=== PATIENT | female | born 1925 | race Caucasian/White ===

== ENCOUNTER 2017-04-15 16:04 | Emergency (ER) | payer OTHER ==
[2017-04-15 16:15] VITALS: BP 163/67; BMI 20.9
--- NOTE | 2017-04-15 16:23 | DR.GENAD ---
HPI - PCP Primary Care Physician: [email or web address] - HPI Comment HPI Comment: Patient c/o falling in her restroom today.She c/o L sided rib cage soreness, L forehead pain and L arm pain with laceration. She is a sharp 89 y/o with a good memory. - Complaint/Symptoms Chief Complaint Doctors Comments: " I fell in my restroom." Chief Complaint:: patient fell at home and has a 6 cm skin tear to her left upper arm. - Nurses notes reviewed Nurses Notes Review: Yes - Source History Provided: Patient - Mode of Arrival Mode of Arrival: EMS - Timing Onset of Chief Complaint: 04/15/17 Came on: Suddenly PMH - PMH Past Medical History: Yes Past Medical History: Dyslipidemia, Hypertension, Hypothyroidism Past Surgical History: Yes Surgical History: Hysterectomy, Joint Replacement, Ortho Surgery - Family History History of Family Medical Conditions: Yes Family Medical History: Cancer, [place], Sudden Cardiac , Hypertension - Social History Does patient currently use any type of tobacco product: No Have you used tobacco products in the last 12 months: No Type of Tobacco Use: None Does any household member use tobacco: No Alcohol Use: None Do you use any recreational Drugs:: No Lives With: Family Lives Where: Home - infectious screening In the last 2 months have you had wt loss of >10#?: NO Have you had fever, night sweats or hemotysis?: No Have you traveled outside the country in the last 6 months?: No Isolation: Standard ROS - Review of Systems Constitutional: No Symptoms Reported Respiratoy: No Symptoms Reported Cardiovascular: Other (l sided rib cage soreness.) Gastrointestinal/Abdominal: No Symptoms Reported Genitourinary: No Symptoms Reported Neurological: No Symptoms Reported, Weakness, Problems Walking Musculoskeletal: Left, Arm, Elbow, Forearm Integumentary: Other (laceration) Hematologic/Lymphatic: No Symptoms Reported Endocrine: No Symptoms Reported Psychiatric: No Symptoms Reported All Other Systems: Reviewed and Negative PE - Vital Signs Vitals: Temperature 98.7 F Pulse Rate 84 Respiratory Rate 16 Blood Pressure [] 122/65 Blood Pressure [] 108/61 Blood Pressure 163/67 O2 Sat by Pulse Oximetry 100 - General Limitations: No Limitations General Appearance: Alert, In No Apparent Distress - Head Head Exam: Other (left sided forehead bruise with mild TTP) - ENT External Ear Exam: Normal External Inspection Mouth Exam: Normal Inspection Throat Exam: Normal Inspection - Neck Neck Exam: Normal Inspection, Full ROM, Trachea Midline - Cardiovascular Cardiovascular Exam: Regular Rate, Normal Rhythm, Normal Heart Sounds - Abdominal Exam Abdominal Exam: Normal Inspection, Normal Bowel Sounds, Soft - Extremities Extremities Exam: Other (7 cm l arm avulsive laceration superficial . No evidence of foreign body noted.) - Neurologic Neurological Exam: Alert, Oriented X3, CN II-XII Intact - Psychiatric Psychiatric Exam: Normal Affect - Skin Skin Exam: Warm, Dry, Intact, Normal Color, Other (laceration) MDM - Differential Diagnosis Differential Diagnosis: falol. head injury, rib fracture. ROR - Labs Reviewed Result Diagrams: 04/15/17 16:44 04/15/17 16:44 Laboratory: WBC 8.1 X10^3/uL (3.6-10.0) 04/15/17 16:44 RBC 4.29 X10^6/uL (3.5-5.4) 04/15/17 16:44 Hgb 14.2 g/dL (12.0-16.0) 04/15/17 16:44 Hct 40.9 % (36.0-47.0) 04/15/17 16:44 MCV 95.3 fL (80.0-100.0) 04/15/17 16:44 MCH 33.0 pg (27.0-34.0) 04/15/17 16:44 MCHC 34.6 g/dL (33.0-35.0) 04/15/17 16:44 RDW 14.6 % (11.6-16.5) 04/15/17 16:44 Plt Count 197 X10^3/uL (150.0-450.0) 04/15/17 16:44 MPV 8.7 fL (7.4-11.0) 04/15/17 16:44 Neut % 57.3 % (42.0-75.0) 04/15/17 16:44 Lymph % 29.5 % (21.0-51.0) 04/15/17 16:44 [place] % 9.3 % (0.0-13.0) 04/15/17 16:44 Eos % 2.4 % (0.9-2.9) 04/15/17 16:44 Baso % 1.5 % (0.2-1.0) H 04/15/17 16:44 Neut # 4.7 x10^3/uL (2.2-4.8) 04/15/17 16:44 Lymph # 2.4 X10^3/uL (1.3-2.9) 04/15/17 16:44 [place] # 0.8 x10^3/uL (0.3-0.8) 04/15/17 16:44 Eos # 0.2 x10^3/uL (0.0-0.2) 04/15/17 16:44 Baso # 0.1 X10^3/uL (0.0-0.1) 04/15/17 16:44 Absolute Nucleated RBC 0.0 /100WBC 04/15/17 16:44 Sodium 142 mmol/L (136-145) 04/15/17 16:44 Corrected Sodium 143 mmol/L (136-145) 04/15/17 16:44 Potassium 3.5 mmol/L (3.5-5.1) 04/15/17 16:44 Chloride 104 mmol/L (98-107) 04/15/17 16:44 Carbon Dioxide 29.5 mmol/L (21-32) 04/15/17 16:44 BUN 28 mg/dL (7-18) H 04/15/17 16:44 Creatinine 1.46 mg/dL (0.55-1.02) H 04/15/17 16:44 Est GFR (MDRD) Af Amer 43 (>60) L 04/15/17 16:44 Est GFR (MDRD) Non-Af 36 (>60) L 04/15/17 16:44 Glucose 133 mg/dL (65-99) H 04/15/17 16:44 Calcium 8.7 mg/dL (8.5-10.1) 04/15/17 16:44 Corrected Calcium TNP 04/15/17 16:44 Total Bilirubin 0.60 mg/dL (0.2-1.0) 04/15/17 16:44 AST 21 Units/L (15-37) 04/15/17 16:44 ALT 18 Units/L (12-78) 04/15/17 16:44 Alkaline Phosphatase 89 Units/L (46-116) 04/15/17 16:44 Total Protein 7.9 g/dL (6.4-8.2) 04/15/17 16:44 Albumin 3.6 g/dL (3.4-5.0) 04/15/17 16:44 Globulin 4.3 g/dL (2.5-4.5) 04/15/17 16:44 Albumin/Globulin Ratio 0.8 Ratio (1.1-2.1) L 04/15/17 16:44 Specimen Type Clean catch urine 04/15/17 17:17 Urine Color Yellow (YELLOW) 04/15/17 17:17 Urine Appearance Hazy (CLEAR) 04/15/17 17:17 Urine pH 5.0 (5.0 - 8.0) 04/15/17 17:17 Ur Specific [place] 1.015 (1.000-1.030) 04/15/17 17:17 Urine Protein 2+ (NEGATIVE) 04/15/17 17:17 Urine Glucose (UA) Negative (NEGATIVE) 04/15/17 17:17 Urine Ketones Negative (NEGATIVE) 04/15/17 17:17 Urine Occult Blood 2+ (NEGATIVE) 04/15/17 17:17 Urine Nitrite Negative (NEGATIVE) 04/15/17 17:17 Urine Bilirubin Negative (NEGATIVE) 04/15/17 17:17 Urine Urobilinogen Normal (NORMAL) 04/15/17 17:17 Ur Leukocyte Esterase 3+ (NEGATIVE) 04/15/17 17:17 Urine RBC 0-2 /HPF (NEGATIVE) 04/15/17 17:17 Urine WBC 5-10 /HPF (NEGATIVE) 04/15/17 17:17 Ur Squamous Epith Cells Few /HPF (NEGATIVE) 04/15/17 17:17 Urine Bacteria Trace /HPF (NEGATIVE) 04/15/17 17:17 Ur Culture Indicated? No/not indicated 04/15/17 17:17 Procedures - Laceration/Wound Repair Left Arm Wound's Depth, Shape: Superficial, Stellate Wound Explored: no foreign body removed Betadine Prep?: Yes Wound Debrided: minimal Wound Repaired With: Steri-strips - Diagnosis Discharge Problem: Fall Qualifiers: Encounter type: initial encounter Qualified Code(s): W19.XXXA - Unspecified fall, initial encounter Laceration of arm Qualifiers: Encounter type: initial encounter Laterality: left Qualified Code(s): S41.112A - Laceration without foreign body of left upper arm, initial encounter Rib contusion Qualifiers: Encounter type: initial encounter Laterality: left Qualified Code(s): S20.212A - Contusion of left front wall of thorax, initial encounter Forehead contusion Qualifiers: Encounter type: initial encounter Qualified Code(s): S00.83XA - Contusion of other part of head, initial encounter - Discharge Plan Disposition: 01 HOME, SELF-CARE Condition: Stable - Follow ups/Referrals Follow ups/Referrals: Darryn Michele [Primary Care Provider] - 3 days - Instructions Instructions: Laceration Care, Adult, [id number], Skin Tear Care, Easy-to- Read
[2017-04-15 16:54] LABS: BASOPHILS # (AUTO) 0.1 X10^3/uL (0.0-0.1); BASOPHILS % (AUTO) 1.5 % (0.2-1.0); EOSINOPHILS # (AUTO) 0.2 x10^3/uL (0.0-0.2); EOSINOPHILS % (AUTO) 2.4 % (0.9-2.9); HEMATOCRIT 40.9 % (36.0-47.0); HEMOGLOBIN 14.2 g/dL (12.0-16.0); LYMPHOCYTES # (AUTO) 2.4 X10^3/uL (1.3-2.9); LYMPHOCYTES % (AUTO) 29.5 % (21.0-51.0); MEAN CORPUSCULAR HGB CONC 34.6 g/dL (33.0-35.0); MEAN CORPUSCULAR VOLUME 95.3 fL (80.0-100.0); MEAN PLATELET VOLUME 8.7 fL (7.4-11.0); MONOCYTES # (AUTO) 0.8 x10^3/uL (0.3-0.8); MONOCYTES % (AUTO) 9.3 % (0.0-13.0); NEUTROPHILS # (AUTO) 4.7 x10^3/uL (2.2-4.8); NEUTROPHILS % (AUTO) 57.3 % (42.0-75.0); PLATELET COUNT 197 X10^3/uL (150.0-450.0); RED BLOOD COUNT 4.29 X10^6/uL (3.5-5.4); RED CELL DISTRIBUTION WIDTH 14.6 % (11.6-16.5); WHITE BLOOD COUNT 8.1 X10^3/uL (3.6-10.0)
[2017-04-15 17:10] LABS: ALANINE AMINOTRANSFERASE 18 Units/L (12-78); ALBUMIN 3.6 g/dL (3.4-5.0); ALKALINE PHOSPHATASE 89 Units/L (46-116); ASPARTATE AMINO TRANSFERASE 21 Units/L (15-37); BLOOD UREA NITROGEN 28 mg/dL (7-18); CALCIUM 8.7 mg/dL (8.5-10.1); CARBON DIOXIDE 29.5 mmol/L (21-32); CHLORIDE 104 mmol/L (98-107); COR NA(FOR HYPERGLY) 143 mmol/L (136-145); CREATININE 1.46 mg/dL (0.55-1.02); GLUCOSE 133 mg/dL (65-99); SODIUM 142 mmol/L (136-145); TOTAL PROTEIN 7.9 g/dL (6.4-8.2); eGFR BLACK RACES 43 (>60); eGFR NON BLACK RACES 36 (>60)
[2017-04-15 17:25] LABS: BILIRUBIN,URINE NEGATIVE (NEGATIVE); BLOOD/HEMOGLOBIN,URINE 2+ (NEGATIVE); GLUCOSE, URINE NEGATIVE (NEGATIVE); KETONES,URINE NEGATIVE (NEGATIVE); LEUKOCYTE ESTERASE ,URINE 3+ (NEGATIVE); NITRITES,URINE NEGATIVE (NEGATIVE); PROTEIN,URINE 2+ (NEGATIVE); UROBILINOGEN,URINE NORMAL (NORMAL)
--- NOTE | 2017-04-15 17:25 | CT ---
HISTORY: Fall with head injury. Study: CT brain without contrast Comparison: MRI brain dated October 05, 2016. Technique: Multiple axial images of the brain were obtained from the skull base to the vertex without administr ation of IV contrast. Dose reduction techniques including Automated Exposure Control (AEC) and adju stment of mA and kV were utilized. Findings: Age related cortical atrophy and chronic small vessel ischemic changes. Known remote cerebellar infa rcts are better seen on comparison MRI . No acute intraparenchymal hemorrhage or mass can be identif ied. No extra-axial fluid collections are seen. No alteration in the attenuation of the brain pare nchyma can be identified to suggest acute or subacute ischemic change. The ventricular system is sy mmetric and nondilated. The extracranial structures are grossly unremarkable. IMPRESSION: 1. No acute intracranial process can be identified. Reported By:
--- NOTE | 2017-04-15 17:26 | RAD ---
Left elbow, three views Indication: Fall with laceration to the forearm Comparison: None Findings: No acute fracture or subluxation of the left elbow is identified. There is no anterior or posterior fat pad displacement. Joint spaces appear well maintained in anatomic position. There is n o gross soft tissue injury. Impression: Negative exam Reported By:
--- NOTE | 2017-04-15 17:28 | RAD ---
Left forearm, two views Indication: Fall with laceration to the forearm Comparison: None Findings: No acute fracture or dislocation of the left forearm is identified. Mild degenerative peña ges of the radiocarpal joint are noted. No gross soft tissue injury or radiopaque foreign body is id entified. Impression: Negative exam. Reported By:
[2017-04-15 17:41] LABS: APPEARANCE,URINE HAZY (CLEAR); COLOR,URINE YELLOW (YELLOW); RBC,URINE 0-2 /HPF (NEGATIVE)
[2017-04-15 17:42] LABS: BACTERIA,URINE TRACE /HPF (NEGATIVE); SQUAMOUS EPITHELIAL CELL,UR FEW /HPF (NEGATIVE)
[2017-04-15] MEDS ORDERED: TYLENOL #3 TAB (W/CODEINE) PO ONE ×2 (17:43→17:49)
--- NOTE | 2017-04-15 19:13 | RAD ---
HISTORY: Left-sided rib pain. Study: Four views of the left ribs. Comparison: Chest x-ray dated October 11, 2016. Findings: The trachea is midline. The cardiac silhouette is enlarged but unchanged. Chronic emphysematous telma nges. The lungs are clear without focal infiltrate or effusion. Deformity of the left lateral 7th a nd 8th ribs. Likely represents nondisplaced fractures. Diffuse osteopenia. Remaining osseous structu res appear intact. The IMPRESSION: 1. No acute cardiopulmonary disease. 2. Likely nondisplaced lateral left 7th and 8th rib fractures. Recommend clinical correlation for po int tenderness. Reported By:
== END 2017-04-15 19:25 | disposition home or self-care (01) ==
LOC: ER 16:04
PROC: 0XQ90ZZ Repair Left Upper Arm, Open Approach (ICD-10-PCS; principal; 2017-04-15)
DX: S41.112A Laceration without foreign body of left upper arm, initial encounter (principal); S20.212A Contusion of left front wall of thorax, initial encounter; S00.83XA Contusion of other part of head, initial encounter; W19.XXXA Unspecified fall, initial encounter; Y92.009 Unspecified place in unspecified non-institutional (private) residence as the place of occurrence of the external cause
CPT/HCPCS: 36415; 70450; 71111; 73070; 73090; 80053; 81001; 85025; 99283

== ENCOUNTER 2017-04-16 10:57 | Inpatient (IN) | payer OTHER ==
[2017-04-16 11:48] VITALS: BMI 21.3
[2017-04-16] MEDS ORDERED: PHARMACY CONSULT - DOSE _____ XX SCH (12:00)
[2017-04-16 12:22] LABS: BASOPHILS # (AUTO) 0.1 X10^3/uL (0.0-0.1); BASOPHILS % (AUTO) 0.9 % (0.2-1.0); EOSINOPHILS # (AUTO) 0.1 x10^3/uL (0.0-0.2); EOSINOPHILS % (AUTO) 0.7 % (0.9-2.9); HEMATOCRIT 40.8 % (36.0-47.0); HEMOGLOBIN 13.9 g/dL (12.0-16.0); LYMPHOCYTES # (AUTO) 1.7 X10^3/uL (1.3-2.9); MEAN CORPUSCULAR HEMOGLOBIN 32.7 pg (27.0-34.0); MEAN CORPUSCULAR HGB CONC 34.1 g/dL (33.0-35.0); MEAN CORPUSCULAR VOLUME 95.9 fL (80.0-100.0); MEAN PLATELET VOLUME 8.7 fL (7.4-11.0); MONOCYTES # (AUTO) 1.1 x10^3/uL (0.3-0.8); MONOCYTES % (AUTO) 10.7 % (0.0-13.0); NEUTROPHILS # (AUTO) 7.7 x10^3/uL (2.2-4.8); NEUTROPHILS % (AUTO) 71.7 % (42.0-75.0); PLATELET COUNT 192 X10^3/uL (150.0-450.0); RED BLOOD COUNT 4.26 X10^6/uL (3.5-5.4); RED CELL DISTRIBUTION WIDTH 14.6 % (11.6-16.5); WHITE BLOOD COUNT 10.7 X10^3/uL (3.6-10.0)
[2017-04-16 12:49] LABS: CARBON DIOXIDE 29.5 mmol/L (21-32); CHLORIDE 104 mmol/L (98-107); SODIUM 142 mmol/L (136-145)
[2017-04-16] MEDS: TORADOL 30 MG VIAL IVP SCH ×2 (12:58→17:36)
[2017-04-16] MEDS ORDERED: LEVAQUIN PREMIX IV 750 MG 750 MG/150 ML BAG IV SCH (13:00)
[2017-04-16] MEDS: NS 1000 ML 1,000 ML IV SCH (13:00)
[2017-04-16 13:24] LABS: ALANINE AMINOTRANSFERASE 17 Units/L (12-78); ALBUMIN 3.6 g/dL (3.4-5.0); ALKALINE PHOSPHATASE 81 Units/L (46-116); ASPARTATE AMINO TRANSFERASE 25 Units/L (15-37); BLOOD UREA NITROGEN 29 mg/dL (7-18); CALCIUM 8.8 mg/dL (8.5-10.1); CKMB % 0.8 % (<4); COR NA(FOR HYPERGLY) 142 mmol/L (136-145); CREATINE KINASE 206 Units/L (26-192); CREATINE KINASE MB 1.6 ng/mL (0-4.0); GLUCOSE 119 mg/dL (65-99); TOTAL PROTEIN 7.9 g/dL (6.4-8.2); TROPONIN I 0.05 ng/mL (0-1.5); eGFR BLACK RACES 46 (>60); eGFR NON BLACK RACES 38 (>60)
[2017-04-16 15:39] LABS: CKMB % 0.8 % (<4); CREATINE KINASE MB 1.6 ng/mL (0-4.0); TROPONIN I 0.1 ng/mL (0-1.5)
[2017-04-16 19:40] LABS: CKMB % 0.8 % (<4); CREATINE KINASE MB 1.5 ng/mL (0-4.0); TROPONIN I 0.1 ng/mL (0-1.5)
--- NOTE | 2017-04-16 20:45 | DR.H&P ---
H&P - History & Physical for Day of: H&P Date: 04/16/17 - Chief Complaint Chief Complaint: ALTERED MENTAL STATUS, SYNCOPE, LEFT SIDE RIB FX, UTI - Allergies Allergies/Adverse Reactions: Allergies Allergy/AdvReac Type Severity Reaction Status Date / Time No Known Drug Allergies Allergy Verified 04/16/17 11:49 - History of Present Illness History of Present Illness: IS A 89 YEAR OLD PATIENT OF OURS WHO WAS A DIRECT ADMISSION FROM OUR OFFICE FOR ALTERED MENTAL STATUS, SYNCOPE, LEFT RIB FRACTURES, AND UTI. PATIENT'S FAMILY STATED THAT SHE PASSED OUT INSIDE OF HER BATHROOM YESTERDAY. SHE COMPLAINS OF PAIN TO THE LEFT RIB AREA AND TO THE LEFT ARM AND ELBOW. PATIENT IS ORIENTED TO PERSON AND PLACE, BUT IS UNABLE TO TELL THE DATE OR YEAR. PATIENT DENIES KNOWING WHERE SHE WAS WHEN SHE PASSED OUT. PATIENT WAS SEEN IN THE ER LAST NIGHT AFTER PASSING OUT. LABS AND XRAYS WERE OBTAINED. CBC WNL. CMP WNL EXCEPT BUN 28, CREATININE 1.46, GLUCOSE 133. URINALYSIS REPORTED WBC 5-10, LEUKOCYTES 3+, TRACE OF BACTERIA. LEFT FOREARM AND XRAY REPORTED NEGATIVE. BRAIN CT NEGATIVE FOR ACUTE INTRACRANIAL PROCESS. RIB SERIES REPORTS NONDISPLACED LATERAL LEFT 7TH AND 8TH RIB FRACTURE. WE ADMITTED PATIENT FOR FURTHER TREATMENT AND EVALUATION. WE STARTED HER ON NS @ 75ML/HR, LEVAQUIN 750MG Q48H, AND TORADOL 15MG IV Q6H JUSTIN. WE PLAN TO RECHECK LABS AND FOLLOW UP WITH PATIENT IN AM. - Past Medical History Past Medical History: Dyslipidemia, Hypertension, Hypothyroidism Additional Medical History: Atrial Fibrillation, Cataracts - Past Surgical History Surgical History: Hysterectomy, Joint Replacement, Ortho Surgery - Family History Family Medical History: Cancer, [place], Sudden Cardiac , Hypertension - Social History Does patient currently use any type of tobacco product: No Have you used tobacco products in the last 12 months: No Type of Tobacco Use: None Does any household member use tobacco: No Alcohol Use: None Drug Use: None - Medications Home Medications: Acetaminophen/Codeine Tab [TYLENOL w/CODEINE #3 (300 MG/30 MG) *] 1 - 2 tab PO Q6HR PRN 04/16/17 [History Confirmed 04/16/17] Amlodipine Besylate [NORVASC 5 MG *] 1 tab PO DAILY 04/16/17 [History Confirmed 04/16/17] Aspirin [ASPIRIN 81 MG CHEWTAB *] 1 tab PO DAILY 04/16/17 [History Confirmed 12/28] Levothyroxine Sodium [SYNTHROID 50 mcg *] 1 tab PO DAILY 04/16/17 [History Confirmed 04/16/17] - Review of Systems Constitutional: Weakness. denies: No Symptoms Reported, See HPI, Fever, Chills , Sweats, Malaise, Other Eyes: No Symptoms Reported. denies: See HPI, Pain, Vision Change, Conjunctivae Inflammation, Eyelid Inflammation, Redness, Other ENT: No Symptoms Reported. denies: See HPI, Ear Pain, Ear Discharge, Nose Pain , Nose Discharge, Nose Congestion, Mouth Pain, Mouth Swelling, Throat Pain, Throat Swelling, Other Cardiovascular: No Symptoms Reported. denies: Chest Pain, See HPI, Palpitations , Orthopnea, Paroxysmal Noc. Dyspnea, Edema, Light Headedness, Other Gastrointestinal: No Symptoms Reported. denies: See HPI, Nausea, Vomiting, Abdominal Pain, Diarrhea, Constipation, Melena, Hematochezia, Other Genitourinary: Dysuria. denies: No Symptoms Reported, See HPI, Frequency, Incontinence, Hematuria, Retention, Other Musculoskeletal: See HPI (LEFT SIDE RIB PAIN FROM FX ), Other Skin: See HPI, Bruising, Wound. denies: No Symptoms Reported, Rash, Lesions, Jaundice, Ecchymosis, Other Neurological: See HPI, Weakness, Confusion. denies: No Symptoms Reported, Numbness, Incoordination, Change in Speech, Seizures, Other - Physical Exam Vital Signs: Temperature 98.3 F Pulse Rate [Right Brachial] 80 Respiratory Rate 18 Blood Pressure [Right Arm] 150/67 Blood Pressure [Left Arm] 108/61 Blood Pressure 163/67 O2 Sat by Pulse Oximetry 93 Oriented: Person, Place. negative: Normal, Time, Not Oriented, Unable to test, Other Eyes: Normal. negative: Blurred Vision, Diplopia, Discharge, Pain, Redness, Photophobia, Other Ear: Normal. negative: Right, Left, Swelling, Ecchymosis, Hemotypanum, Abrasion , Laceration Nose: Normal. negative: Injected, Discharge, Blood, Other Throat: Normal. negative: Tonsillar Hypertrophy, Red, Exudate, Dry, Other Respiratory: Clear Throughout. negative: Diminished Throughout, Rhonchi Throughout, Rales Throughout, Wheezes Throughout, RUL Clear, RML Clear, RLL Clear, JIMMY Clear, LML Clear, LLL Clear, RUL Diminished, RML Diminished, RLL Diminished, JIMMY Diminished, LML Diminished, LLL Diminished, RUL Absent, RML Absent, RLL Absent, JIMMY Absent, LML Absent, LLL Absent, RUL Rhonchi, RML Rhonchi , RLL Rhonchi, JIMMY Rhonchi, LML Rhonchi, LLL Rhonchi, RUL Insp. Wheeze, RML Insp. Wheeze, RLL Insp. Wheeze, JIMMY Insp.Wheeze, LML Insp.Wheeze, LLL Insp.Wheeze, RUL Exp. Wheeze, RML Exp. Wheeze, RLL Exp. Wheeze, JIMMY Exp. Wheeze , LML Exp. Wheeze, LLL Exp. Wheeze, RUL Rales, RML Rales, RLL Rales, JIMMY Rales, LML Rales, LLL Rales, RUL Rub, RML Rub, RLL Rub, JIMMY Rub, LML Rub, LLL Rub, RUL Squeak, RML Squeak, RLL Squeak, JIMMY Squeak, LML Squeak, LLL Squeak Cardiovascular: Normal. negative: Tachycardia, Bradycardia, Irregular, S3, S4, Systolic, Diastolic, Murmur, Edema, Other : Normal. negative: Dysuria, Hematuria, Frequency, Discharge, Testicular Pain , Bleeding, , Other Auscultation: Bowel Sounds: Normal. negative: Bruit, Absent, Increased, Decreased, High Pitched, Other Palpation: Normal. negative: Spleen Enlarged, Liver Enlarged, Mass Pulsatile, Other Tenderness: Normal. negative: Diffuse, RUQ, RLQ, LUQ, LLQ, Epigastric, Periumbilical, Suprapubic, Mild, Moderate, Severe, Rebound, Guarding, Rigidity, Other Skin: Wound, Bruising. negative: Normal, Decreased Turgur, Rash, Papular, Macular, Maculopapular, Vesicular, Pustular, Petechial, Red, Tender, Hot, Diaphoresis, Ecchymosis, Other Musculoskeletal: Left, Tender (RIB AREA ) Psychiatric: Normal. negative: Anxiety, Depression, Agitation, Other Mood Description: Calm. negative: Angry, Apathetic, Depressed, Fearful, Flat, Happy, Hostile, Sad, Suspicious, Withdrawn, Anxious, Appropriate, Labile Affect: Normal. negative: Angry, Anxious, Depressed, Flat, Hysterical, Quiet, Violent Speech Pattern: Clear. negative: Appropriate, Unclear, Inappropriate, Delayed, Slurred, Excessive, Aphasic, Artificially Ventilated
[2017-04-17] MEDS: TORADOL 30 MG VIAL IVP SCH ×4 (01:18→18:18)
[2017-04-17] MEDS: NS 1000 ML 1,000 ML IV SCH ×3 (01:19→10:25)
[2017-04-17 05:51] LABS: ALANINE AMINOTRANSFERASE 14 Units/L (12-78); ALBUMIN 2.9 g/dL (3.4-5.0); ALKALINE PHOSPHATASE 68 Units/L (46-116); ASPARTATE AMINO TRANSFERASE 23 Units/L (15-37); BLOOD UREA NITROGEN 24 mg/dL (7-18); CARBON DIOXIDE 26.1 mmol/L (21-32); CHLORIDE 107 mmol/L (98-107); COR CA(FOR HYPOALB) 8.9 mg/dL (8.5-10.1); CREATINE KINASE 188 Units/L (26-192); CREATINE KINASE MB 1.9 ng/mL (0-4.0); GLUCOSE 101 mg/dL (65-99); SODIUM 140 mmol/L (136-145); TOTAL PROTEIN 6.6 g/dL (6.4-8.2); TROPONIN I 0.08 ng/mL (0-1.5); eGFR BLACK RACES 54 (>60); eGFR NON BLACK RACES 45 (>60)
[2017-04-17 06:18] LABS: BASOPHILS % (AUTO) 0.2 % (0.2-1.0); EOSINOPHILS # (AUTO) 0.2 x10^3/uL (0.0-0.2); EOSINOPHILS % (AUTO) 1.8 % (0.9-2.9); HEMATOCRIT 35.6 % (36.0-47.0); HEMOGLOBIN 12.2 g/dL (12.0-16.0); LYMPHOCYTES # (AUTO) 2.4 X10^3/uL (1.3-2.9); LYMPHOCYTES % (AUTO) 23.2 % (21.0-51.0); MEAN CORPUSCULAR HEMOGLOBIN 32.8 pg (27.0-34.0); MEAN CORPUSCULAR HGB CONC 34.3 g/dL (33.0-35.0); MEAN CORPUSCULAR VOLUME 95.6 fL (80.0-100.0); MEAN PLATELET VOLUME 9.2 fL (7.4-11.0); MONOCYTES % (AUTO) 9.4 % (0.0-13.0); NEUTROPHILS # (AUTO) 6.7 x10^3/uL (2.2-4.8); NEUTROPHILS % (AUTO) 65.4 % (42.0-75.0); PLATELET COUNT 166 X10^3/uL (150.0-450.0); RED BLOOD COUNT 3.73 X10^6/uL (3.5-5.4); RED CELL DISTRIBUTION WIDTH 14.3 % (11.6-16.5); WHITE BLOOD COUNT 10.3 X10^3/uL (3.6-10.0)
[2017-04-17] MEDS ORDERED: TYLENOL #3 TAB (W/CODEINE) PO PRN (09:22)
[2017-04-17] MEDS: SYNTHROID 50 mcg TAB PO SCH (10:25)
[2017-04-17] MEDS: TOPROL XL PO SCH (10:25)
[2017-04-17] MEDS: MEGACE PO SCH ×2 (10:25→20:42)
[2017-04-17] MEDS: NORVASC TAB 5 MG PO SCH (10:25)
[2017-04-17] MEDS: HYDROCHLOROTHIAZIDE 25 MG TAB PO SCH (10:25)
[2017-04-17] MEDS: ASPIRIN 81 MG CHEWTAB PO SCH (10:25)
[2017-04-17] MEDS ORDERED: LEVAQUIN PREMIX IV 750 MG 750 MG/150 ML BAG IV SCH (11:00)
[2017-04-17] MEDS: LEVAQUIN PREMIX IV 750 MG 750 MG/150 ML BAG IV SCH (12:42)
[2017-04-17] MEDS: LIPITOR TAB 10 MG PO SCH (20:42)
[2017-04-17] MEDS: XALATAN EACHEYE SCH (20:42)
[2017-04-18] MEDS: TORADOL 30 MG VIAL IVP SCH ×2 (00:09→06:16)
[2017-04-18 05:29] LABS: ALANINE AMINOTRANSFERASE 14 Units/L (12-78); ALBUMIN 2.8 g/dL (3.4-5.0); ALKALINE PHOSPHATASE 64 Units/L (46-116); ASPARTATE AMINO TRANSFERASE 23 Units/L (15-37); BLOOD UREA NITROGEN 18 mg/dL (7-18); CALCIUM 7.9 mg/dL (8.5-10.1); CARBON DIOXIDE 23.4 mmol/L (21-32); CHLORIDE 107 mmol/L (98-107); COR CA(FOR HYPOALB) 8.9 mg/dL (8.5-10.1); CREATININE 1.14 mg/dL (0.55-1.02); GLUCOSE 110 mg/dL (65-99); SODIUM 140 mmol/L (136-145); TOTAL PROTEIN 6.3 g/dL (6.4-8.2); eGFR BLACK RACES 58 (>60); eGFR NON BLACK RACES 48 (>60)
[2017-04-18 05:31] LABS: BASOPHILS % (AUTO) 0.4 % (0.2-1.0); EOSINOPHILS # (AUTO) 0.1 x10^3/uL (0.0-0.2); EOSINOPHILS % (AUTO) 1.2 % (0.9-2.9); HEMATOCRIT 35.2 % (36.0-47.0); HEMOGLOBIN 12.1 g/dL (12.0-16.0); LYMPHOCYTES % (AUTO) 18.2 % (21.0-51.0); MEAN CORPUSCULAR HEMOGLOBIN 32.8 pg (27.0-34.0); MEAN CORPUSCULAR HGB CONC 34.3 g/dL (33.0-35.0); MEAN CORPUSCULAR VOLUME 95.7 fL (80.0-100.0); MONOCYTES # (AUTO) 1.1 x10^3/uL (0.3-0.8); MONOCYTES % (AUTO) 10.1 % (0.0-13.0); NEUTROPHILS # (AUTO) 7.7 x10^3/uL (2.2-4.8); NEUTROPHILS % (AUTO) 70.1 % (42.0-75.0); PLATELET COUNT 153 X10^3/uL (150.0-450.0); RED BLOOD COUNT 3.68 X10^6/uL (3.5-5.4); RED CELL DISTRIBUTION WIDTH 14.3 % (11.6-16.5)
[2017-04-18] MEDS: NS 1000 ML 1,000 ML IV SCH ×2 (06:15→18:08)
[2017-04-18] MEDS ORDERED: LEVAQUIN PREMIX IV 750 MG 750 MG/150 ML BAG IV SCH (09:00)
[2017-04-18] MEDS: MEGACE PO SCH ×2 (09:11→20:57)
[2017-04-18] MEDS: HYDROCHLOROTHIAZIDE 25 MG TAB PO SCH (09:12)
[2017-04-18] MEDS: ASPIRIN 81 MG CHEWTAB PO SCH (09:12)
[2017-04-18] MEDS: SYNTHROID 50 mcg TAB PO SCH (09:12)
[2017-04-18] MEDS: TOPROL XL PO SCH (09:12)
[2017-04-18] MEDS: NORVASC TAB 5 MG PO SCH (09:12)
[2017-04-18] MEDS ORDERED: MILK OF MAGNESIA PO PRN (19:57)
[2017-04-18] MEDS ORDERED: COLACE CAP 100 MG PO PRN (19:57)
[2017-04-18] MEDS: LIPITOR TAB 10 MG PO SCH (20:57)
[2017-04-18] MEDS: XALATAN EACHEYE SCH (20:59)
[2017-04-19 05:14] LABS: ALANINE AMINOTRANSFERASE 16 Units/L (12-78); ALBUMIN 2.9 g/dL (3.4-5.0); ALKALINE PHOSPHATASE 66 Units/L (46-116); ASPARTATE AMINO TRANSFERASE 25 Units/L (15-37); BLOOD UREA NITROGEN 17 mg/dL (7-18); CALCIUM 8.1 mg/dL (8.5-10.1); CARBON DIOXIDE 22.3 mmol/L (21-32); CHLORIDE 107 mmol/L (98-107); CREATININE 1.03 mg/dL (0.55-1.02); GLUCOSE 96 mg/dL (65-99); SODIUM 140 mmol/L (136-145); TOTAL PROTEIN 6.7 g/dL (6.4-8.2); eGFR BLACK RACES > 60 (>60); eGFR NON BLACK RACES 54 (>60)
[2017-04-19 05:26] LABS: BASOPHILS # (AUTO) 0.1 X10^3/uL (0.0-0.1); BASOPHILS % (AUTO) 0.8 % (0.2-1.0); EOSINOPHILS # (AUTO) 0.3 x10^3/uL (0.0-0.2); EOSINOPHILS % (AUTO) 2.4 % (0.9-2.9); HEMATOCRIT 37.2 % (36.0-47.0); HEMOGLOBIN 12.7 g/dL (12.0-16.0); LYMPHOCYTES # (AUTO) 2.5 X10^3/uL (1.3-2.9); LYMPHOCYTES % (AUTO) 18.8 % (21.0-51.0); MEAN CORPUSCULAR HEMOGLOBIN 32.6 pg (27.0-34.0); MEAN CORPUSCULAR HGB CONC 34.2 g/dL (33.0-35.0); MEAN CORPUSCULAR VOLUME 95.1 fL (80.0-100.0); MEAN PLATELET VOLUME 9.8 fL (7.4-11.0); MONOCYTES # (AUTO) 1.2 x10^3/uL (0.3-0.8); NEUTROPHILS # (AUTO) 9.1 x10^3/uL (2.2-4.8); PLATELET COUNT 163 X10^3/uL (150.0-450.0); RED BLOOD COUNT 3.91 X10^6/uL (3.5-5.4); RED CELL DISTRIBUTION WIDTH 14.1 % (11.6-16.5); WHITE BLOOD COUNT 13.1 X10^3/uL (3.6-10.0)
[2017-04-19] MEDS: MILK OF MAGNESIA PO SCH (09:22)
[2017-04-19] MEDS: TOPROL XL PO SCH (09:22)
[2017-04-19] MEDS: SYNTHROID 50 mcg TAB PO SCH (09:23)
[2017-04-19] MEDS: NORVASC TAB 5 MG PO SCH (09:23)
[2017-04-19] MEDS: MEGACE PO SCH ×2 (09:23→20:44)
[2017-04-19] MEDS: ASPIRIN 81 MG CHEWTAB PO SCH (09:23)
[2017-04-19] MEDS: HYDROCHLOROTHIAZIDE 25 MG TAB PO SCH (09:23)
[2017-04-19] MEDS: LEVAQUIN PREMIX IV 750 MG 750 MG/150 ML BAG IV SCH (10:40)
--- NOTE | 2017-04-19 10:40 | PCM.PROG ---
Progress Note - Progress Note for Day of Date: 04/19/17 - Subjective Subjective: WAS ALERT AND ORIENTED, SITTING UP IN CHAIR ON MORNING ROUNDS. SHE REPORTS HAVING A SLEEPLESS NIGHT DUE TO PAIN IN RIB AREA. VITALS THIS AM WERE 98.4-68-20-94%-140/63. CBC WNL EXCEPT WBC 13.1. CMP WNL EXCEPT CREATININE 1.03, CALCIUM 8.1, ALBUMIN 2.9. WE DISCUSSED WITH PATIENT SHORT TERM STAY HERE AT THE HOSPITAL FOR PHYSICAL THERAPY. PATIENT IS IN AGREEMENT. CASE MANAGEMENT WILL CHECK TO SEE IF PATIENT IS A CANDIDATE FOR SWINGBED. WE PLAN TO RECHECK URINALYSIS AND LABS AND FOLLOW UP WITH PATIENT IN AM. - Past Medical Family Social History Past Med/Fam/Surg Hx: No changes since H&P Allergies: Allergies No Known Drug Allergies Allergy (Verified 04/16/17 11:49) - Review of Systems ROS: No change since H&P - Vital Signs and I&O's Vital Signs: Temperature 98.5 F Pulse Rate [Right Brachial] 71 Respiratory Rate 20 Blood Pressure [Right Arm] 157/75 Blood Pressure [Left Arm] 108/61 Blood Pressure 163/67 O2 Sat by Pulse Oximetry 96 Intake and Output: Intake & Output 04/16/17 04/17/17 04/18/17 04/19/17 11:59 11:59 11:59 11:59 Intake Total 1435 2010 2980 Output Total 0 Balance 1435 2010 2980 - Physical Exam Oriented: Person, Place. negative: Normal, Time, Not Oriented, Unable to test, Other Eyes: Normal. negative: Blurred Vision, Diplopia, Discharge, Pain, Redness, Photophobia, Other Ear: Normal. negative: Right, Left, Swelling, Ecchymosis, Hemotypanum, Abrasion , Laceration Nose: Normal. negative: Injected, Discharge, Blood, Other Throat: Normal. negative: Tonsillar Hypertrophy, Red, Exudate, Dry, Other Respiratory: Normal. negative: Right, Left, Generalized, Superior, Inferior, Diminished, Wheezes, Rales, Rhonchi, OTHER Cardiovascular: Normal. negative: Tachycardia, Bradycardia, Irregular, S3, S4, Systolic, Diastolic, Murmur, Edema, Other : Normal. negative: Dysuria, Hematuria, Frequency, Discharge, Testicular Pain , Bleeding, , Other Auscultation: Bowel Sounds: Normal. negative: Bruit, Absent, Increased, Decreased, High Pitched, Other Palpation: Normal. negative: Spleen Enlarged, Liver Enlarged, Mass Pulsatile, Other Tenderness: Normal. negative: Diffuse, RUQ, RLQ, LUQ, LLQ, Epigastric, Periumbilical, Suprapubic, Mild, Moderate, Severe, Rebound, Guarding, Rigidity, Other Skin: Wound, Bruising. negative: Normal, Decreased Turgur, Rash, Papular, Macular, Maculopapular, Vesicular, Pustular, Petechial, Red, Tender, Hot, Diaphoresis, Ecchymosis, Other Musculoskeletal: Left (LEFT SIDE RIBS ), Tender (RIB AREA ) Psychiatric: Normal. negative: Anxiety, Depression, Agitation, Other Mood Description: Calm. negative: Angry, Apathetic, Depressed, Fearful, Flat, Happy, Hostile, Sad, Suspicious, Withdrawn, Anxious, Appropriate, Labile Affect: Normal. negative: Angry, Anxious, Depressed, Flat, Hysterical, Quiet, Violent Speech Pattern: Clear. negative: Appropriate, Unclear, Inappropriate, Delayed, Slurred, Excessive, Aphasic, Artificially Ventilated - Laboratory and Diagnostics Result Diagrams: 04/19/17 03:30 04/19/17 03:30 Labs: Laboratory WBC 13.1 X10^3/uL (3.6-10.0) H 04/19/17 03:30 RBC 3.91 X10^6/uL (3.5-5.4) 04/19/17 03:30 Hgb 12.7 g/dL (12.0-16.0) 04/19/17 03:30 Hct 37.2 % (36.0-47.0) 04/19/17 03:30 MCV 95.1 fL (80.0-100.0) 04/19/17 03:30 MCH 32.6 pg (27.0-34.0) 04/19/17 03:30 MCHC 34.2 g/dL (33.0-35.0) 04/19/17 03:30 RDW 14.1 % (11.6-16.5) 04/19/17 03:30 Plt Count 163 X10^3/uL (150.0-450.0) 04/19/17 03:30 MPV 9.8 fL (7.4-11.0) 04/19/17 03:30 Neut % 69.0 % (42.0-75.0) 04/19/17 03:30 Lymph % 18.8 % (21.0-51.0) L 04/19/17 03:30 [place] % 9.0 % (0.0-13.0) 04/19/17 03:30 Eos % 2.4 % (0.9-2.9) 04/19/17 03:30 Baso % 0.8 % (0.2-1.0) 04/19/17 03:30 Neut # 9.1 x10^3/uL (2.2-4.8) H 04/19/17 03:30 Lymph # 2.5 X10^3/uL (1.3-2.9) 04/19/17 03:30 [place] # 1.2 x10^3/uL (0.3-0.8) H 04/19/17 03:30 Eos # 0.3 x10^3/uL (0.0-0.2) H 04/19/17 03:30 Baso # 0.1 X10^3/uL (0.0-0.1) 04/19/17 03:30 Absolute Nucleated RBC 0.2 /100WBC 04/19/17 03:30 Sodium 140 mmol/L (136-145) 04/19/17 03:30 Corrected Sodium TNP 04/19/17 03:30 Potassium 3.7 mmol/L (3.5-5.1) 04/19/17 03:30 Chloride 107 mmol/L (98-107) 04/19/17 03:30 Carbon Dioxide 22.3 mmol/L (21-32) 04/19/17 03:30 BUN 17 mg/dL (7-18) 04/19/17 03:30 Creatinine 1.03 mg/dL (0.55-1.02) H 04/19/17 03:30 Est GFR (MDRD) Af Amer > 60 (>60) 04/19/17 03:30 Est GFR (MDRD) Non-Af 54 (>60) L 04/19/17 03:30 Glucose 96 mg/dL (65-99) 04/19/17 03:30 Calcium 8.1 mg/dL (8.5-10.1) L 04/19/17 03:30 Corrected Calcium 9.0 mg/dL (8.5-10.1) 04/19/17 03:30 Total Bilirubin 1.00 mg/dL (0.2-1.0) 04/19/17 03:30 AST 25 Units/L (15-37) 04/19/17 03:30 ALT 16 Units/L (12-78) 04/19/17 03:30 Alkaline Phosphatase 66 Units/L (46-116) 04/19/17 03:30 Creatine Kinase 188 Units/L (26-192) 04/17/17 04:45 CK-MB (CK-2) 1.9 ng/mL (0-4.0) 04/17/17 04:45 CK/CKMB % Calc 1.0 % (<4) 04/17/17 04:45 Troponin I 0.08 ng/mL (0-1.5) 04/17/17 04:45 Total Protein 6.7 g/dL (6.4-8.2) 04/19/17 03:30 Albumin 2.9 g/dL (3.4-5.0) L 04/19/17 03:30 Globulin 3.8 g/dL (2.5-4.5) 04/19/17 03:30 Albumin/Globulin Ratio 0.8 Ratio (1.1-2.1) L 04/19/17 03:30 - Plan (1) Ribs, multiple fractures Status: Acute Qualifiers: Encounter type: E Fracture type: closed Laterality: left Fracture healing: with routine healing Qualified Code(s): S22.42XD - Multiple fractures of ribs, left side, subsequent encounter for fracture with routine healing Plan: CONTINUE TORADOL IV PRN PAIN, CONTINUE TO MONITOR (2) Urinary tract infection Status: Acute Qualifiers: Urinary tract infection type: site unspecified Hematuria presence: without hematuria Indwelling urinary catheter type: I Encounter type: E Qualified Code(s): N39.0 - Urinary tract infection, site not specified Plan: CONTINUE LEVAQUIN 750MG IV Q48H, CONTINUE TO MONITOR (3) Altered mental status Status: Acute Qualifiers: Altered mental status type: transient alteration of awareness Coma depth: C Coma timing: C Qualified Code(s): R40.4 - Transient alteration of awareness Plan: CONTINUE TO MONITOR, TREAT INFECTION
[2017-04-19] MEDS: NS 1000 ML 1,000 ML IV SCH ×2 (10:41→18:21)
--- NOTE | 2017-04-19 11:11 | RAD ---
History: Left rib pain and shortness of breath Study: AP chest Comparison: April 15 Findings: The left hemidiaphragm is now obscured in the left costophrenic angle is blunted. There is no pneumothorax. The right lung is clear and the heart size is normal. There is an old fracture of the proximal left humerus. Impression: Left basilar consolidation or atelectasis with a small left pleural effusion Reported By:
[2017-04-19] MEDS: LIPITOR TAB 10 MG PO SCH (20:44)
[2017-04-19] MEDS: COLACE CAP 100 MG PO SCH (20:44)
[2017-04-19] MEDS: XALATAN EACHEYE SCH (20:45)
[2017-04-19] MEDS: XOPENEX 1.25 MG/3 ML NEBULE NEB SCH (21:05)
[2017-04-19 23:56] LABS: BILIRUBIN,URINE NEGATIVE (NEGATIVE); BLOOD/HEMOGLOBIN,URINE 3+ (NEGATIVE); GLUCOSE, URINE NEGATIVE (NEGATIVE); KETONES,URINE NEGATIVE (NEGATIVE); LEUKOCYTE ESTERASE ,URINE 2+ (NEGATIVE); NITRITES,URINE NEGATIVE (NEGATIVE); PROTEIN,URINE 1+ (NEGATIVE); UROBILINOGEN,URINE NORMAL (NORMAL)
[2017-04-20 00:01] LABS: APPEARANCE,URINE SLIGHTLY HAZY (CLEAR); BACTERIA,URINE 1+ /HPF (NEGATIVE); COLOR,URINE YELLOW (YELLOW); SQUAMOUS EPITHELIAL CELL,UR RARE /HPF (NEGATIVE)
[2017-04-20] MEDS: NS 1000 ML 1,000 ML IV SCH ×2 (02:27→08:26)
[2017-04-20 05:20] LABS: ALANINE AMINOTRANSFERASE 12 Units/L (12-78); ALBUMIN 2.7 g/dL (3.4-5.0); ALKALINE PHOSPHATASE 62 Units/L (46-116); ASPARTATE AMINO TRANSFERASE 20 Units/L (15-37); BLOOD UREA NITROGEN 18 mg/dL (7-18); CALCIUM 7.9 mg/dL (8.5-10.1); CARBON DIOXIDE 23.2 mmol/L (21-32); CHLORIDE 108 mmol/L (98-107); COR CA(FOR HYPOALB) 8.9 mg/dL (8.5-10.1); CREATININE 1.15 mg/dL (0.55-1.02); GLUCOSE 88 mg/dL (65-99); SODIUM 140 mmol/L (136-145); TOTAL PROTEIN 6.3 g/dL (6.4-8.2); eGFR BLACK RACES 57 (>60); eGFR NON BLACK RACES 47 (>60)
[2017-04-20 05:51] LABS: BASOPHILS # (AUTO) 0.1 X10^3/uL (0.0-0.1); BASOPHILS % (AUTO) 0.5 % (0.2-1.0); EOSINOPHILS # (AUTO) 0.2 x10^3/uL (0.0-0.2); EOSINOPHILS % (AUTO) 1.9 % (0.9-2.9); HEMATOCRIT 33.7 % (36.0-47.0); HEMOGLOBIN 11.6 g/dL (12.0-16.0); LYMPHOCYTES # (AUTO) 2.1 X10^3/uL (1.3-2.9); MEAN CORPUSCULAR HGB CONC 34.3 g/dL (33.0-35.0); MEAN CORPUSCULAR VOLUME 96.2 fL (80.0-100.0); MEAN PLATELET VOLUME 9.2 fL (7.4-11.0); MONOCYTES # (AUTO) 0.9 x10^3/uL (0.3-0.8); MONOCYTES % (AUTO) 9.1 % (0.0-13.0); NEUTROPHILS # (AUTO) 6.8 x10^3/uL (2.2-4.8); NEUTROPHILS % (AUTO) 67.5 % (42.0-75.0); PLATELET COUNT 164 X10^3/uL (150.0-450.0); RED BLOOD COUNT 3.51 X10^6/uL (3.5-5.4); RED CELL DISTRIBUTION WIDTH 14.6 % (11.6-16.5)
[2017-04-20] MEDS: HYDROCHLOROTHIAZIDE 25 MG TAB PO SCH (08:26)
[2017-04-20] MEDS: TOPROL XL PO SCH (08:26)
[2017-04-20] MEDS: ASPIRIN 81 MG CHEWTAB PO SCH (08:26)
[2017-04-20] MEDS: SYNTHROID 50 mcg TAB PO SCH (08:26)
[2017-04-20] MEDS: MEGACE PO SCH ×2 (08:26→22:57)
[2017-04-20] MEDS: NORVASC TAB 5 MG PO SCH (08:26)
[2017-04-20] MEDS: MILK OF MAGNESIA PO SCH (08:27)
[2017-04-20] MEDS: XOPENEX 1.25 MG/3 ML NEBULE NEB SCH ×4 (08:50→20:13)
--- NOTE | 2017-04-20 09:10 | RAD ---
Chest, one view Indication: Rib pain after fall, shortness of breath Comparison: April 19, 2017 Findings: There is a small left pleural effusion, unchanged. Adjacent left basilar opacities, likel y atelectasis with or without acute infiltrate also appear essentially stable. The left upper lung a nd right lung are clear. No pneumothorax is identified. Chronic fracture deformity of the left humer al neck is again noted. No acute osseous abnormality is otherwise seen. Impression: Stable left pleural effusion with unchanged basilar atelectasis or consolidation. Reported By:
[2017-04-20] MEDS ORDERED: PROTONIX TAB 40 MG PO SCH (10:00)
[2017-04-20] MEDS ORDERED: PEPCID TAB 20 MG PO SCH (10:00)
[2017-04-20] MEDS ORDERED: CELEBREX PO SCH (10:00)
[2017-04-20] MEDS: ULTRAM PO SCH ×3 (10:21→22:56)
[2017-04-20] MEDS ORDERED: LEVAQUIN TAB 500 MG PO SCH (11:00)
[2017-04-20] MEDS: LIPITOR TAB 10 MG PO SCH (22:55)
[2017-04-20] MEDS: COLACE CAP 100 MG PO SCH (22:57)
[2017-04-20] MEDS: XALATAN EACHEYE SCH (22:59)
[2017-04-21 05:31] LABS: ALANINE AMINOTRANSFERASE 13 Units/L (12-78); ALBUMIN 2.8 g/dL (3.4-5.0); ALKALINE PHOSPHATASE 62 Units/L (46-116); ASPARTATE AMINO TRANSFERASE 19 Units/L (15-37); BASOPHILS % (AUTO) 0.4 % (0.2-1.0); BLOOD UREA NITROGEN 17 mg/dL (7-18); CALCIUM 8.2 mg/dL (8.5-10.1); CARBON DIOXIDE 23.8 mmol/L (21-32); CHLORIDE 107 mmol/L (98-107); COR CA(FOR HYPOALB) 9.2 mg/dL (8.5-10.1); CREATININE 1.35 mg/dL (0.55-1.02); EOSINOPHILS # (AUTO) 0.2 x10^3/uL (0.0-0.2); EOSINOPHILS % (AUTO) 2.4 % (0.9-2.9); GLUCOSE 81 mg/dL (65-99); HEMATOCRIT 33.7 % (36.0-47.0); HEMOGLOBIN 11.6 g/dL (12.0-16.0); LYMPHOCYTES # (AUTO) 1.5 X10^3/uL (1.3-2.9); LYMPHOCYTES % (AUTO) 14.9 % (21.0-51.0); MEAN CORPUSCULAR HEMOGLOBIN 32.9 pg (27.0-34.0); MEAN CORPUSCULAR HGB CONC 34.3 g/dL (33.0-35.0); MEAN CORPUSCULAR VOLUME 95.9 fL (80.0-100.0); MEAN PLATELET VOLUME 9.1 fL (7.4-11.0); MONOCYTES # (AUTO) 0.9 x10^3/uL (0.3-0.8); MONOCYTES % (AUTO) 9.5 % (0.0-13.0); NEUTROPHILS # (AUTO) 7.2 x10^3/uL (2.2-4.8); NEUTROPHILS % (AUTO) 72.8 % (42.0-75.0); PLATELET COUNT 165 X10^3/uL (150.0-450.0); RED BLOOD COUNT 3.52 X10^6/uL (3.5-5.4); RED CELL DISTRIBUTION WIDTH 14.4 % (11.6-16.5); SODIUM 141 mmol/L (136-145); TOTAL PROTEIN 6.4 g/dL (6.4-8.2); WHITE BLOOD COUNT 9.8 X10^3/uL (3.6-10.0); eGFR BLACK RACES 47 (>60); eGFR NON BLACK RACES 39 (>60)
[2017-04-21] MEDS: ULTRAM PO SCH (05:51)
--- NOTE | 2017-04-21 09:09 | RAD ---
HISTORY: Shortness of breath Study: Single view of the chest Comparison: April 20, 2017 Findings: The trachea is midline. The cardiac silhouette is enlarged. A left-sided pleural effusion is again demonstrated and has not significantly changed since prior study. Underlying left basilar atelectas is and or infiltrate cannot entirely be excluded. The aortic knob is partially calcified. IMPRESSION: 1. No overall significant change since prior study. Reported By:
[2017-04-21] MEDS: XOPENEX 1.25 MG/3 ML NEBULE NEB SCH (09:20)
[2017-04-21 09:29] VITALS: BP 148/96
--- NOTE | 2017-04-21 13:40 | DR.CARTERD ---
- Admission Date Date of Admission: 04/16/17 - Admission Diagnoses Admission Diagnosis: (1) Ribs, multiple fractures (2) Urinary tract infection (3) Altered mental status (4) Syncope - Discharge Date Discharge Date: 04/21/17 - Discharge Diagnoses Discharge Diagnosis: - Plan (1) Ribs, multiple fractures (2) Urinary tract infection (3) Altered mental status (4) Hyperlipidemia (5) Hypertension (6) Hypothyroidism (7) Glaucoma (8) GERD (gastroesophageal reflux disease) - Hospital Course Hospital Course: IS A 89 YEAR OLD PATIENT OF OURS WHO WAS A DIRECT ADMISSION FROM OUR OFFICE FOR ALTERED MENTAL STATUS, SYNCOPE, LEFT RIB FRACTURES, AND UTI. PATIENT' S FAMILY STATED THAT SHE PASSED OUT INSIDE OF HER BATHROOM YESTERDAY. SHE COMPLAINED OF PAIN TO THE LEFT RIB AREA AND TO THE LEFT ARM AND ELBOW. PATIENT WAS ORIENTED TO PERSON AND PLACE, BUT IS UNABLE TO TELL THE DATE OR YEAR. PATIENT DENIES KNOWING WHERE SHE WAS WHEN SHE PASSED OUT. PATIENT WAS SEEN IN THE ER LAST NIGHT AFTER PASSING OUT. LABS AND XRAYS WERE OBTAINED. CBC WNL. CMP WNL EXCEPT BUN 28, CREATININE 1.46, GLUCOSE 133. URINALYSIS REPORTED WBC 5-10, LEUKOCYTES 3+, TRACE OF BACTERIA. LEFT FOREARM AND XRAY REPORTED NEGATIVE. BRAIN CT NEGATIVE FOR ACUTE INTRACRANIAL PROCESS. RIB SERIES REPORTS NONDISPLACED LATERAL LEFT 7TH AND 8TH RIB FRACTURE. WE ADMITTED PATIENT FOR FURTHER TREATMENT AND EVALUATION. WE STARTED HER ON NS @75ML/HR, LEVAQUIN 750MG Q48H, AND TORADOL 15MG IV Q6H JUSTIN. OVER THE NEXT SEVERAL DAYS, PATIENT CONTINUED WITH PAIN TO RIB AREA. WE ORDERED FOR PHYSICAL THERAPY TO WORK WITH PATIENT. PATIENT REPORTED THAT HER FAMILY WAS OUT OF TOWN AND THAT SHE DID NOT FEEL COMFORTABLE GOING HOME ALONE WITHOUT ANY ASSISTANCE. WE WERE IN AGREEMENT WITH PATIENT AND FELT THAT SHE COULD BENEFIT FROM A SWINGBED STAY FOR PHYSICAL THERAPY UNTIL HER FAMILY RETURNS HOME TO ASSIST HER. WE RECHECK URINALYSIS. IT REPORTED WBC 8-10, RBC 3-5, LEUKOCYTES 2+ , BACTERIA 1+, PROTEIN 1+. LABS REMAINED STABLE. WE STARTED PATIENT ON CELEBREX 200MG DAILY, PEPCID 20MG DAILY, PROTONIX 40MG DAILY, ULTRAM 50MG TID FOR HER PAIN. ON DAY 5 OF STAY, PATIENT ALERT AND ORIENTED IN BED ON MORNING ROUNDS. SHE REPORTED IMPROVEMENT IN PAIN. VITALS WERE 98.4-74-20-94%-149/67. LABS STABLE, SEE EMR. WE TRANSITIONED PATIENT TO SWINGBED STATUS ON SAME MEDICATIONS. - Discharge Medications Discharge Medications: Acetaminophen/Codeine Tab [TYLENOL w/CODEINE #3 (300 MG/30 MG) *] 1 - 2 tab PO Q6HR PRN 04/16/17 [History] Amlodipine Besylate [NORVASC 5 MG *] 1 tab PO DAILY 04/16/17 [History] Aspirin [ASPIRIN 81 MG CHEWTAB *] 1 tab PO DAILY 04/16/17 [History] Levothyroxine Sodium [SYNTHROID 50 mcg *] 1 tab PO DAILY 04/16/17 [History] Celecoxib [CELEBREX 100 MG *] 200 mg PO DAILY cap 04/21/17 [Rx] Docusate Sodium [COLACE CAP 100 MG *] 100 mg PO HS cap 04/21/17 [Rx] Famotidine [PEPCID TAB 20 MG *] 20 mg PO DAILY tab 04/21/17 [Rx] Levalbuterol HCl [XOPENEX NEBULE 1.25 MG *] 1 ea NEB QIDRESP each 04/21/17 [Rx] Levofloxacin [LEVAQUIN TAB 500 MG *] 500 mg PO DAILY tab 04/21/17 [Rx] Magnesium Hydroxide Susp [MILK of MAGNESIA SUSP *] 30 ml PO DAILY suspension [Rx] Pantoprazole Sodium 40 mg [PROTONIX 40 MG *] 40 mg PO DAILY tab 04/21/17 [Rx] Tramadol HCl [ULTRAM 50 MG *] 50 mg PO TID tab 04/21/17 [Rx]
--- NOTE | 2017-04-21 13:43 | PCM.PROG ---
Progress Note - Progress Note for Day of Date: 04/20/17 - Subjective Subjective: WAS ALERT AND ORIENTED, SITTING UP IN CHAIR ON MORNING ROUNDS. SHE REPORTS PAIN IN RIB AREA. VITALS THIS AM WERE 98.3-75-20-95%-146/ 69. CBC WNL EXCEPT HGB 11.6, HCT 33.7. CMP WNL EXCEPT CREATININE 1.35, CALCIUM 8.2, ALBUMIN 2.8. URNINALYSIS REPORTED WBC 8-10, RBC 3-5, LEUKOCYTES 2+, BACTERIA 1+, PROTEIN 1+. WE WILL START CELEBREX 200MG DAILY, PEPCID 20MG DAILY, PROTONIX 40MG DAILY, ULTRAM 50MG TID. WE WILL RECHECK LABS AND FOLLOW UP WITH PATIENT IN AM. - Past Medical Family Social History Past Med/Fam/Surg Hx: No changes since H&P Allergies: Allergies No Known Drug Allergies Allergy (Verified 04/16/17 11:49) - Review of Systems ROS: No change since H&P - Vital Signs and I&O's Vital Signs: Temperature 98.2 F Pulse Rate [Right Brachial] 91 Pulse Rate 73 Respiratory Rate 20 Blood Pressure [Right Arm] 148/96 Blood Pressure [Left Arm] 108/61 Blood Pressure 163/67 O2 Sat by Pulse Oximetry 96 Intake and Output: Intake & Output 04/19/17 04/20/17 04/21/17 04/22/17 11:59 11:59 11:59 11:59 Intake Total 2980 1440 535 Output Total 300 Balance 2980 1440 235 - Physical Exam Oriented: Person, Place. negative: Normal, Time, Not Oriented, Unable to test, Other Eyes: Normal. negative: Blurred Vision, Diplopia, Discharge, Pain, Redness, Photophobia, Other Ear: Normal. negative: Right, Left, Swelling, Ecchymosis, Hemotypanum, Abrasion , Laceration Nose: Normal. negative: Injected, Discharge, Blood, Other Throat: Normal. negative: Tonsillar Hypertrophy, Red, Exudate, Dry, Other Respiratory: Normal. negative: Right, Left, Generalized, Superior, Inferior, Diminished, Wheezes, Rales, Rhonchi, OTHER Cardiovascular: Normal. negative: Tachycardia, Bradycardia, Irregular, S3, S4, Systolic, Diastolic, Murmur, Edema, Other : Normal. negative: Dysuria, Hematuria, Frequency, Discharge, Testicular Pain , Bleeding, , Other Auscultation: Bowel Sounds: Normal. negative: Bruit, Absent, Increased, Decreased, High Pitched, Other Tenderness: Normal. negative: Diffuse, RUQ, RLQ, LUQ, LLQ, Epigastric, Periumbilical, Suprapubic, Mild, Moderate, Severe, Rebound, Guarding, Rigidity, Other Skin: Wound, Bruising. negative: Normal, Decreased Turgur, Rash, Papular, Macular, Maculopapular, Vesicular, Pustular, Petechial, Red, Tender, Hot, Diaphoresis, Ecchymosis, Other Musculoskeletal: Left (LEFT SIDE RIBS ), Tender (RIB AREA ) Psychiatric: Normal. negative: Anxiety, Depression, Agitation, Other Mood Description: Calm Affect: Normal. negative: Angry, Anxious, Depressed, Flat, Hysterical, Quiet, Violent Speech Pattern: Clear, Appropriate - Laboratory and Diagnostics Result Diagrams: 04/21/17 03:50 04/21/17 03:50 Labs: 04/19/17 23:39 Urine,Clean Catch Urine Culture - Preliminary Laboratory WBC 9.8 X10^3/uL (3.6-10.0) 04/21/17 03:50 RBC 3.52 X10^6/uL (3.5-5.4) 04/21/17 03:50 Hgb 11.6 g/dL (12.0-16.0) L 04/21/17 03:50 Hct 33.7 % (36.0-47.0) L 04/21/17 03:50 MCV 95.9 fL (80.0-100.0) 04/21/17 03:50 MCH 32.9 pg (27.0-34.0) 04/21/17 03:50 MCHC 34.3 g/dL (33.0-35.0) 04/21/17 03:50 RDW 14.4 % (11.6-16.5) 04/21/17 03:50 Plt Count 165 X10^3/uL (150.0-450.0) 04/21/17 03:50 MPV 9.1 fL (7.4-11.0) 04/21/17 03:50 Neut % 72.8 % (42.0-75.0) 04/21/17 03:50 Lymph % 14.9 % (21.0-51.0) L 04/21/17 03:50 [place] % 9.5 % (0.0-13.0) 04/21/17 03:50 Eos % 2.4 % (0.9-2.9) 04/21/17 03:50 Baso % 0.4 % (0.2-1.0) 04/21/17 03:50 Neut # 7.2 x10^3/uL (2.2-4.8) H 04/21/17 03:50 Lymph # 1.5 X10^3/uL (1.3-2.9) 04/21/17 03:50 [place] # 0.9 x10^3/uL (0.3-0.8) H 04/21/17 03:50 Eos # 0.2 x10^3/uL (0.0-0.2) 04/21/17 03:50 Baso # 0.0 X10^3/uL (0.0-0.1) 04/21/17 03:50 Absolute Nucleated RBC 0.1 /100WBC 04/21/17 03:50 Sodium 141 mmol/L (136-145) 04/21/17 03:50 Corrected Sodium TNP 04/21/17 03:50 Potassium 3.5 mmol/L (3.5-5.1) 04/21/17 03:50 Chloride 107 mmol/L (98-107) 04/21/17 03:50 Carbon Dioxide 23.8 mmol/L (21-32) 04/21/17 03:50 BUN 17 mg/dL (7-18) 04/21/17 03:50 Creatinine 1.35 mg/dL (0.55-1.02) H 04/21/17 03:50 Est GFR (MDRD) Af Amer 47 (>60) L 04/21/17 03:50 Est GFR (MDRD) Non-Af 39 (>60) L 04/21/17 03:50 Glucose 81 mg/dL (65-99) 04/21/17 03:50 Calcium 8.2 mg/dL (8.5-10.1) L 04/21/17 03:50 Corrected Calcium 9.2 mg/dL (8.5-10.1) 04/21/17 03:50 Total Bilirubin 0.80 mg/dL (0.2-1.0) 04/21/17 03:50 AST 19 Units/L (15-37) 04/21/17 03:50 ALT 13 Units/L (12-78) 04/21/17 03:50 Alkaline Phosphatase 62 Units/L (46-116) 04/21/17 03:50 Creatine Kinase 188 Units/L (26-192) 04/17/17 04:45 CK-MB (CK-2) 1.9 ng/mL (0-4.0) 04/17/17 04:45 CK/CKMB % Calc 1.0 % (<4) 04/17/17 04:45 Troponin I 0.08 ng/mL (0-1.5) 04/17/17 04:45 Total Protein 6.4 g/dL (6.4-8.2) 04/21/17 03:50 Albumin 2.8 g/dL (3.4-5.0) L 04/21/17 03:50 Globulin 3.6 g/dL (2.5-4.5) 04/21/17 03:50 Albumin/Globulin Ratio 0.8 Ratio (1.1-2.1) L 04/21/17 03:50 Specimen Type Clean catch urine 04/19/17 23:39 Urine Color Yellow (YELLOW) 04/19/17 23:39 Urine Appearance Slightly hazy (CLEAR) 04/19/17 23:39 Urine pH 6.0 (5.0 - 8.0) 04/19/17 23:39 Ur Specific [place] 1.010 (1.000-1.030) 04/19/17 23:39 Urine Protein 1+ (NEGATIVE) 04/19/17 23:39 Urine Glucose (UA) Negative (NEGATIVE) 04/19/17 23:39 Urine Ketones Negative (NEGATIVE) 04/19/17 23:39 Urine Occult Blood 3+ (NEGATIVE) 04/19/17 23:39 Urine Nitrite Negative (NEGATIVE) 04/19/17 23:39 Urine Bilirubin Negative (NEGATIVE) 04/19/17 23:39 Urine Urobilinogen Normal (NORMAL) 04/19/17 23:39 Ur Leukocyte Esterase 2+ (NEGATIVE) 04/19/17 23:39 Urine RBC 3-5 /HPF (NEGATIVE) 04/19/17 23:39 Urine WBC 8-10 /HPF (NEGATIVE) 04/19/17 23:39 Ur Squamous Epith Cells Rare /HPF (NEGATIVE) 04/19/17 23:39 Urine Bacteria 1+ /HPF (NEGATIVE) 04/19/17 23:39 Ur Culture Indicated? Yes/culture set up 04/19/17 23:39 - Plan (1) Ribs, multiple fractures Status: Acute Qualifiers: Encounter type: E Fracture type: closed Laterality: left Fracture healing: with routine healing Qualified Code(s): S22.42XD - Multiple fractures of ribs, left side, subsequent encounter for fracture with routine healing Plan: START CELEBREX 200MG PO DAILY, START ULTRAM 50MG PO TID, CONTINUE TO MONITOR (2) Urinary tract infection Status: Acute Qualifiers: Urinary tract infection type: site unspecified Hematuria presence: without hematuria Indwelling urinary catheter type: I Encounter type: E Qualified Code(s): N39.0 - Urinary tract infection, site not specified Plan: CONTINUE LEVAQUIN 750MG IV Q48H, CONTINUE TO MONITOR (3) Altered mental status Status: Acute Qualifiers: Altered mental status type: transient alteration of awareness Coma depth: C Coma timing: C Qualified Code(s): R40.4 - Transient alteration of awareness Plan: CONTINUE TO MONITOR, TREAT INFECTION (4) Hyperlipidemia Status: Chronic Qualifiers: Hyperlipidemia type: mixed hyperlipidemia Qualified Code(s): E78.2 - Mixed hyperlipidemia Plan: CONTINUE LIPITOR, CONTINUE TO MONITOR (5) Hypertension Status: Chronic Qualifiers: Hypertension type: essential hypertension Qualified Code(s): I10 - Essential (primary) hypertension Plan: CONTINUE NORVASC, CONTINUE HCTZ, CONTINUE TOPROL, CONTINUE TO MONITOR (6) Hypothyroidism Status: Chronic Qualifiers: Hypothyroidism type: acquired Qualified Code(s): E03.9 - Hypothyroidism, unspecified Plan: CONTINUE SYNTHROID 50MCG DAILY, CONTINUE TO MONITOR (7) Glaucoma Status: Acute Qualifiers: Glaucoma type: unspecified Open angle glaucoma type: O Primary angle closure glaucoma type: P Laterality: unspecified laterality Glaucoma stage: G Qualified Code(s): H40.9 - Unspecified glaucoma Plan: CONTINUE XALATAN EYE DROPS, CONTINUE TO MONITOR (8) GERD (gastroesophageal reflux disease) Status: Chronic Qualifiers: Esophagitis presence: esophagitis presence not specified Qualified Code(s) : K21.9 - Gastro-esophageal reflux disease without esophagitis Plan: START PEPCID AND PROTONIX, CONTINUE TO MONITOR
== END 2017-04-21 11:00 | disposition swing bed (61) | DRG 184 ==
LOC: MED/SURG 10:57
PROVIDERS: ADMIT Internal Medicine; ATTEND Internal Medicine
DX: S22.42XA Multiple fractures of ribs, left side, initial encounter for closed fracture (principal); R55 Syncope and collapse; N39.0 Urinary tract infection, site not specified; R40.4 Transient alteration of awareness; E78.2 Mixed hyperlipidemia; I10 Essential (primary) hypertension; E03.8 Other specified hypothyroidism; K21.9 Gastro-esophageal reflux disease without esophagitis; R26.89 Other abnormalities of gait and mobility; W18.39XA Other fall on same level, initial encounter; Y92.89 Other specified places as the place of occurrence of the external cause
CPT/HCPCS: 36415; 71010; 80053; 81001; 82550; 82553; 84484; 85025; 87086; 87088; 87186; 93005; 94640; 94760; A4222; S0179; J1885; J1956

== ENCOUNTER 2017-04-21 11:00 | Inpatient (IN) | payer OTHER ==
[2017-04-21] MEDS ORDERED: XOPENEX 1.25 MG/3 ML NEBULE NEB ONE (11:47)
[2017-04-21] MEDS ORDERED: TYLENOL #3 TAB (W/CODEINE) PO PRN (14:02)
--- NOTE | 2017-04-21 14:09 | DR.UPDATE ---
H&P Update History and Physical Update: 'S H&P WAS COMPLETED ON 04/16/17. SHE WAS CHANGED TODAY TO SWINGBED STATUS FOR PHYSICAL THERAPY. NO CHANGES NOTED TO H&P. Changes noted: NO Yes with the following:
[2017-04-21] MEDS: ULTRAM PO SCH ×2 (15:48→21:13)
[2017-04-21] MEDS: XOPENEX 1.25 MG/3 ML NEBULE NEB SCH ×2 (16:11→20:46)
[2017-04-21] MEDS: COLACE CAP 100 MG PO SCH (21:13)
[2017-04-21] MEDS: MEGACE PO SCH (21:13)
[2017-04-21] MEDS: XALATAN EACHEYE SCH (21:13)
[2017-04-21] MEDS: LIPITOR TAB 10 MG PO SCH (21:13)
[2017-04-22] MEDS: ULTRAM PO SCH ×3 (05:32→21:35)
[2017-04-22] MEDS ORDERED: LEVAQUIN TAB 500 MG PO SCH (09:00)
[2017-04-22] MEDS: XOPENEX 1.25 MG/3 ML NEBULE NEB SCH ×4 (09:50→20:32)
[2017-04-22] MEDS: MEGACE PO SCH ×2 (10:31→21:35)
[2017-04-22] MEDS: MILK OF MAGNESIA PO SCH (10:31)
[2017-04-22] MEDS: PEPCID TAB 20 MG PO SCH (10:31)
[2017-04-22] MEDS: TOPROL XL PO SCH (10:32)
[2017-04-22] MEDS: HYDROCHLOROTHIAZIDE 25 MG TAB PO SCH (10:32)
[2017-04-22] MEDS: CELEBREX PO SCH (10:32)
[2017-04-22] MEDS: SYNTHROID 50 mcg TAB PO SCH (10:32)
[2017-04-22] MEDS: PROTONIX TAB 40 MG PO SCH (10:32)
[2017-04-22] MEDS: NORVASC TAB 5 MG PO SCH (10:32)
[2017-04-22] MEDS: ASPIRIN 81 MG CHEWTAB PO SCH (10:32)
[2017-04-22 13:11] VITALS: BMI 20.9
[2017-04-22] MEDS: RIFADIN CAP 300 MG PO SCH ×2 (16:00→21:34)
[2017-04-22] MEDS: COLACE CAP 100 MG PO SCH (21:34)
[2017-04-22] MEDS: LIPITOR TAB 10 MG PO SCH (21:34)
[2017-04-22] MEDS: XALATAN EACHEYE SCH (21:36)
[2017-04-23] MEDS: ULTRAM PO SCH ×3 (05:24→21:37)
[2017-04-23] MEDS: XOPENEX 1.25 MG/3 ML NEBULE NEB SCH ×4 (09:05→20:15)
[2017-04-23] MEDS: MILK OF MAGNESIA PO SCH (10:44)
[2017-04-23] MEDS: CELEBREX PO SCH (10:44)
[2017-04-23] MEDS: PROTONIX TAB 40 MG PO SCH (10:45)
[2017-04-23] MEDS: SYNTHROID 50 mcg TAB PO SCH (10:45)
[2017-04-23] MEDS: TOPROL XL PO SCH (10:45)
[2017-04-23] MEDS: ASPIRIN 81 MG CHEWTAB PO SCH (10:45)
[2017-04-23] MEDS: NORVASC TAB 5 MG PO SCH (10:45)
[2017-04-23] MEDS: PEPCID TAB 20 MG PO SCH (10:45)
[2017-04-23] MEDS: HYDROCHLOROTHIAZIDE 25 MG TAB PO SCH (10:45)
[2017-04-23] MEDS: MEGACE PO SCH ×2 (10:45→21:37)
[2017-04-23] MEDS: RIFADIN CAP 300 MG PO SCH ×2 (10:57→21:37)
[2017-04-23] MEDS: COLACE CAP 100 MG PO SCH (21:37)
[2017-04-23] MEDS: LIPITOR TAB 10 MG PO SCH (21:37)
[2017-04-23] MEDS: XALATAN EACHEYE SCH (21:38)
[2017-04-24] MEDS: ULTRAM PO SCH ×3 (05:46→21:04)
[2017-04-24 06:25] LABS: BASOPHILS # (AUTO) 0.1 X10^3/uL (0.0-0.1); BASOPHILS % (AUTO) 1.1 % (0.2-1.0); EOSINOPHILS # (AUTO) 0.4 x10^3/uL (0.0-0.2); EOSINOPHILS % (AUTO) 3.9 % (0.9-2.9); HEMATOCRIT 37.2 % (36.0-47.0); HEMOGLOBIN 12.9 g/dL (12.0-16.0); LYMPHOCYTES # (AUTO) 1.9 X10^3/uL (1.3-2.9); LYMPHOCYTES % (AUTO) 20.6 % (21.0-51.0); MEAN CORPUSCULAR HEMOGLOBIN 33.4 pg (27.0-34.0); MEAN CORPUSCULAR HGB CONC 34.6 g/dL (33.0-35.0); MEAN CORPUSCULAR VOLUME 96.5 fL (80.0-100.0); MEAN PLATELET VOLUME 9.3 fL (7.4-11.0); MONOCYTES # (AUTO) 0.9 x10^3/uL (0.3-0.8); MONOCYTES % (AUTO) 10.2 % (0.0-13.0); NEUTROPHILS # (AUTO) 5.8 x10^3/uL (2.2-4.8); NEUTROPHILS % (AUTO) 64.2 % (42.0-75.0); PLATELET COUNT 175 X10^3/uL (150.0-450.0); RED BLOOD COUNT 3.86 X10^6/uL (3.5-5.4); RED CELL DISTRIBUTION WIDTH 14.2 % (11.6-16.5); WHITE BLOOD COUNT 9.1 X10^3/uL (3.6-10.0)
[2017-04-24 06:47] LABS: ALANINE AMINOTRANSFERASE 15 Units/L (12-78); ALBUMIN 3.1 g/dL (3.4-5.0); ALKALINE PHOSPHATASE 88 Units/L (46-116); ASPARTATE AMINO TRANSFERASE 32 Units/L (15-37); BLOOD UREA NITROGEN 23 mg/dL (7-18); CALCIUM 8.4 mg/dL (8.5-10.1); CARBON DIOXIDE 25.4 mmol/L (21-32); CHLORIDE 104 mmol/L (98-107); COR CA(FOR HYPOALB) 9.1 mg/dL (8.5-10.1); CREATININE 1.43 mg/dL (0.55-1.02); GLUCOSE 89 mg/dL (65-99); SODIUM 139 mmol/L (136-145); TOTAL PROTEIN 7.1 g/dL (6.4-8.2); eGFR BLACK RACES 44 (>60); eGFR NON BLACK RACES 37 (>60)
[2017-04-24] MEDS: NORVASC TAB 5 MG PO SCH (08:52)
[2017-04-24] MEDS: MILK OF MAGNESIA PO SCH ×2 (08:52→09:01)
[2017-04-24] MEDS: RIFADIN CAP 300 MG PO SCH ×2 (08:52→21:04)
[2017-04-24] MEDS: ASPIRIN 81 MG CHEWTAB PO SCH (08:52)
[2017-04-24] MEDS: SYNTHROID 50 mcg TAB PO SCH (08:52)
[2017-04-24] MEDS: PEPCID TAB 20 MG PO SCH (08:52)
[2017-04-24] MEDS: CELEBREX PO SCH (08:52)
[2017-04-24] MEDS: PROTONIX TAB 40 MG PO SCH (08:52)
[2017-04-24] MEDS: TOPROL XL PO SCH (08:52)
[2017-04-24] MEDS: HYDROCHLOROTHIAZIDE 25 MG TAB PO SCH (08:52)
[2017-04-24] MEDS: XOPENEX 1.25 MG/3 ML NEBULE NEB SCH ×4 (09:21→21:08)
[2017-04-24] MEDS: MEGACE PO SCH ×2 (10:06→21:04)
[2017-04-24] MEDS: COLACE CAP 100 MG PO SCH (21:04)
[2017-04-24] MEDS: LIPITOR TAB 10 MG PO SCH (21:04)
[2017-04-24] MEDS: XALATAN EACHEYE SCH (23:40)
[2017-04-25] MEDS: ULTRAM PO SCH ×3 (05:57→21:06)
[2017-04-25] MEDS: XOPENEX 1.25 MG/3 ML NEBULE NEB SCH ×5 (09:41→21:35)
[2017-04-25] MEDS: PEPCID TAB 20 MG PO SCH (09:54)
[2017-04-25] MEDS: MEGACE PO SCH ×2 (09:54→20:35)
[2017-04-25] MEDS: PROTONIX TAB 40 MG PO SCH (09:54)
[2017-04-25] MEDS: TOPROL XL PO SCH (09:55)
[2017-04-25] MEDS: RIFADIN CAP 300 MG PO SCH ×2 (09:55→20:35)
[2017-04-25] MEDS: SYNTHROID 50 mcg TAB PO SCH (09:55)
[2017-04-25] MEDS: ASPIRIN 81 MG CHEWTAB PO SCH (09:55)
[2017-04-25] MEDS: NORVASC TAB 5 MG PO SCH (09:55)
[2017-04-25] MEDS: MILK OF MAGNESIA PO SCH (09:55)
[2017-04-25] MEDS: HYDROCHLOROTHIAZIDE 25 MG TAB PO SCH (09:55)
[2017-04-25] MEDS: CELEBREX PO SCH (09:55)
[2017-04-25] MEDS: COLACE CAP 100 MG PO SCH (20:35)
[2017-04-25] MEDS: LIPITOR TAB 10 MG PO SCH (20:35)
[2017-04-25] MEDS: XALATAN EACHEYE SCH (21:05)
[2017-04-26] MEDS: ULTRAM PO SCH ×2 (05:20→15:08)
[2017-04-26 05:54] LABS: ALANINE AMINOTRANSFERASE 19 Units/L (12-78); ALBUMIN 2.9 g/dL (3.4-5.0); ALKALINE PHOSPHATASE 93 Units/L (46-116); ASPARTATE AMINO TRANSFERASE 33 Units/L (15-37); BLOOD UREA NITROGEN 22 mg/dL (7-18); CARBON DIOXIDE 26.6 mmol/L (21-32); CHLORIDE 102 mmol/L (98-107); COR CA(FOR HYPOALB) 8.9 mg/dL (8.5-10.1); CREATININE 1.35 mg/dL (0.55-1.02); GLUCOSE 97 mg/dL (65-99); SODIUM 138 mmol/L (136-145); TOTAL PROTEIN 6.8 g/dL (6.4-8.2); eGFR BLACK RACES 47 (>60); eGFR NON BLACK RACES 39 (>60)
[2017-04-26 06:56] LABS: BASOPHILS # (AUTO) 0.1 X10^3/uL (0.0-0.1); EOSINOPHILS # (AUTO) 0.3 x10^3/uL (0.0-0.2); EOSINOPHILS % (AUTO) 2.6 % (0.9-2.9); HEMATOCRIT 38.1 % (36.0-47.0); HEMOGLOBIN 13.2 g/dL (12.0-16.0); LYMPHOCYTES # (AUTO) 1.9 X10^3/uL (1.3-2.9); LYMPHOCYTES % (AUTO) 17.1 % (21.0-51.0); MEAN CORPUSCULAR HEMOGLOBIN 32.9 pg (27.0-34.0); MEAN CORPUSCULAR HGB CONC 34.7 g/dL (33.0-35.0); MEAN CORPUSCULAR VOLUME 94.6 fL (80.0-100.0); MEAN PLATELET VOLUME 8.3 fL (7.4-11.0); MONOCYTES # (AUTO) 1.1 x10^3/uL (0.3-0.8); MONOCYTES % (AUTO) 10.3 % (0.0-13.0); NEUTROPHILS # (AUTO) 7.6 x10^3/uL (2.2-4.8); PLATELET COUNT 181 X10^3/uL (150.0-450.0); RED BLOOD COUNT 4.02 X10^6/uL (3.5-5.4)
[2017-04-26] MEDS: CELEBREX PO SCH (09:16)
[2017-04-26] MEDS: MEGACE PO SCH (09:16)
[2017-04-26] MEDS: RIFADIN CAP 300 MG PO SCH (09:16)
[2017-04-26] MEDS: PROTONIX TAB 40 MG PO SCH (09:16)
[2017-04-26] MEDS: MILK OF MAGNESIA PO SCH (09:17)
[2017-04-26] MEDS: PEPCID TAB 20 MG PO SCH (09:17)
[2017-04-26] MEDS: HYDROCHLOROTHIAZIDE 25 MG TAB PO SCH (09:17)
[2017-04-26] MEDS: NORVASC TAB 5 MG PO SCH (09:17)
[2017-04-26] MEDS: SYNTHROID 50 mcg TAB PO SCH (09:17)
[2017-04-26] MEDS: TOPROL XL PO SCH (09:17)
[2017-04-26] MEDS: ASPIRIN 81 MG CHEWTAB PO SCH (09:17)
[2017-04-26] MEDS: XOPENEX 1.25 MG/3 ML NEBULE NEB SCH ×2 (09:44→12:02)
--- NOTE | 2017-04-26 10:00 | PCM.PROG ---
Progress Note - Progress Note for Day of Date: 04/26/17 - Subjective Subjective: IS ALERT AND ORIENTED, SITTING UP IN CHAIR ON MORNING ROUNDS. SHE IS CURRENTLY SWINGBED STATUS FOR PHYSICAL THERAPY. SHE REPORTS WEAKNESS AND RIB PAIN TODAY. PHYSICAL THERAPY HAS BEEN WORKING WITH PATIENT. SHE IS ABLE TO AMBULATE WITH ASSISTANCE. SHE CONTINUES TO BE TREATED FOR MRSA IN URINE. VITALS THIS AM ARE 98.8-72-20-97%-141/66. CBC WNL EXCEPT WBC 11. CMP WNL EXCEPT BUN 22, CREATININE 1.35, GFR 39, CALCIUM 8.0, TOTAL BILIRUBIN 1.70. ALBUMIN 2.9. WE WILL CONTINUE WITH CURRENT PLAN OF CARE. WE PLAN TO RECHECK LABS ON WEDNESDAY AND CONTINUE TO FOLLOW UP WITH PATIENT. - Past Medical Family Social History Past Med/Fam/Surg Hx: No changes since H&P Allergies: Allergies No Known Drug Allergies Allergy (Verified 04/16/17 11:49) - Review of Systems ROS: No change since H&P - Vital Signs and I&O's Vital Signs: Temperature 98.8 F Pulse Rate [Right Brachial] 72 Pulse Rate 63 Respiratory Rate 20 Blood Pressure [Right Arm] 141/66 Blood Pressure [Left Arm] 108/61 Blood Pressure 148/96 O2 Sat by Pulse Oximetry 98 Intake and Output: Intake & Output 04/23/17 04/24/17 04/25/17 04/26/17 11:59 11:59 11:59 11:59 Intake Total 760 470 360 240 Output Total 700 Balance 760 470 360 -460 - Physical Exam Oriented: Normal Eyes: Normal Ear: Normal Nose: Normal Throat: Normal Respiratory: Normal Cardiovascular: Normal : Normal Auscultation: Bowel Sounds: Normal Palpation: Normal Tenderness: Normal Skin: Normal Musculoskeletal: Instability Psychiatric: Normal Mood Description: Calm Affect: Normal Speech Pattern: Clear, Appropriate - Laboratory and Diagnostics Result Diagrams: 04/26/17 06:43 04/26/17 05:20 Labs: Laboratory WBC 11.0 X10^3/uL (3.6-10.0) H 04/26/17 06:43 RBC 4.02 X10^6/uL (3.5-5.4) 04/26/17 06:43 Hgb 13.2 g/dL (12.0-16.0) 04/26/17 06:43 Hct 38.1 % (36.0-47.0) 04/26/17 06:43 MCV 94.6 fL (80.0-100.0) 04/26/17 06:43 MCH 32.9 pg (27.0-34.0) 04/26/17 06:43 MCHC 34.7 g/dL (33.0-35.0) 04/26/17 06:43 RDW 14.0 % (11.6-16.5) 04/26/17 06:43 Plt Count 181 X10^3/uL (150.0-450.0) 04/26/17 06:43 MPV 8.3 fL (7.4-11.0) 04/26/17 06:43 Neut % 69.0 % (42.0-75.0) 04/26/17 06:43 Lymph % 17.1 % (21.0-51.0) L 04/26/17 06:43 [place] % 10.3 % (0.0-13.0) 04/26/17 06:43 Eos % 2.6 % (0.9-2.9) 04/26/17 06:43 Baso % 1.0 % (0.2-1.0) 04/26/17 06:43 Neut # 7.6 x10^3/uL (2.2-4.8) H 04/26/17 06:43 Lymph # 1.9 X10^3/uL (1.3-2.9) 04/26/17 06:43 [place] # 1.1 x10^3/uL (0.3-0.8) H 04/26/17 06:43 Eos # 0.3 x10^3/uL (0.0-0.2) H 04/26/17 06:43 Baso # 0.1 X10^3/uL (0.0-0.1) 04/26/17 06:43 Absolute Nucleated RBC 0.1 /100WBC 04/26/17 06:43 Sodium 138 mmol/L (136-145) 04/26/17 05:20 Corrected Sodium TNP 04/26/17 05:20 Potassium 3.9 mmol/L (3.5-5.1) 04/26/17 05:20 Chloride 102 mmol/L (98-107) 04/26/17 05:20 Carbon Dioxide 26.6 mmol/L (21-32) 04/26/17 05:20 BUN 22 mg/dL (7-18) H 04/26/17 05:20 Creatinine 1.35 mg/dL (0.55-1.02) H 04/26/17 05:20 Est GFR (MDRD) Af Amer 47 (>60) L 04/26/17 05:20 Est GFR (MDRD) Non-Af 39 (>60) L 04/26/17 05:20 Glucose 97 mg/dL (65-99) 04/26/17 05:20 Calcium 8.0 mg/dL (8.5-10.1) L 04/26/17 05:20 Corrected Calcium 8.9 mg/dL (8.5-10.1) 04/26/17 05:20 Total Bilirubin 1.70 mg/dL (0.2-1.0) H 04/26/17 05:20 AST 33 Units/L (15-37) 04/26/17 05:20 ALT 19 Units/L (12-78) 04/26/17 05:20 Alkaline Phosphatase 93 Units/L (46-116) 04/26/17 05:20 Total Protein 6.8 g/dL (6.4-8.2) 04/26/17 05:20 Albumin 2.9 g/dL (3.4-5.0) L 04/26/17 05:20 Globulin 3.9 g/dL (2.5-4.5) 04/26/17 05:20 Albumin/Globulin Ratio 0.7 Ratio (1.1-2.1) L 04/26/17 05:20 - Plan (1) Ribs, multiple fractures Status: Acute Qualifiers: Encounter type: E Fracture type: closed Laterality: left Fracture healing: with routine healing Qualified Code(s): S22.42XD - Multiple fractures of ribs, left side, subsequent encounter for fracture with routine healing Plan: CONTINUE CELEBREX, CONTINUE ULTRAM, CONTINUE PT, CONTINUE TO MONITOR (2) Urinary tract infection Status: Acute Qualifiers: Urinary tract infection type: site unspecified Hematuria presence: without hematuria Indwelling urinary catheter type: I Encounter type: E Qualified Code(s): N39.0 - Urinary tract infection, site not specified Plan: CONTINUE RIFAMPIN, CONTINUE TO MONITOR (3) GERD (gastroesophageal reflux disease) Status: Chronic Qualifiers: Esophagitis presence: esophagitis presence not specified Qualified Code(s) : K21.9 - Gastro-esophageal reflux disease without esophagitis Plan: CONTINUE PEPCID, CONTINUE PROTONIX, CONTINUE TO MONITOR (4) Hyperlipidemia Status: Chronic Qualifiers: Hyperlipidemia type: mixed hyperlipidemia Qualified Code(s): E78.2 - Mixed hyperlipidemia Plan: CONTINUE LIPITOR, CONTINUE TO MONITOR (5) Hypertension Status: Chronic Qualifiers: Hypertension type: essential hypertension Qualified Code(s): I10 - Essential (primary) hypertension Plan: CONTINUE NORVASC, CONTINUE HCTZ, CONTINUE TOPROL, CONTINUE TO MONITOR
[2017-04-26 10:34] VITALS: BP 121/55
== END 2017-04-26 15:25 | DRG 949 ==
LOC: MED/SURG 11:00
PROVIDERS: ADMIT Internal Medicine; ATTEND Internal Medicine
DX: Z51.89 Encounter for other specified aftercare (principal); S22.42XA Multiple fractures of ribs, left side, initial encounter for closed fracture; R55 Syncope and collapse; N39.0 Urinary tract infection, site not specified; R40.4 Transient alteration of awareness; E78.2 Mixed hyperlipidemia; I10 Essential (primary) hypertension; E03.8 Other specified hypothyroidism; K21.9 Gastro-esophageal reflux disease without esophagitis; R26.89 Other abnormalities of gait and mobility; W18.39XA Other fall on same level, initial encounter; Y92.89 Other specified places as the place of occurrence of the external cause; R53.1 Weakness; B95.62 Methicillin resistant Staphylococcus aureus infection as the cause of diseases classified elsewhere; R62.7 Adult failure to thrive
CPT/HCPCS: 36415; 80053; 85025; 97535; A4216; S0179